=== PATIENT | female | born 2000 | race Caucasian/White ===

== ENCOUNTER 2021-07-02 10:04 | Outpatient (CLI) | payer OTHER, SELFPAY ==
--- NOTE | ~2021-07-02 | XR_ITS ---
EXAMINATION: XR thoracic spine 3V, XR lumbar spine 2-3V DATE: 07/02/2021 10:23 INDICATION: Back pain with bilateral leg radiculopathy TECHNIQUE: 1. One AP, lateral and lateral swimmer's views of the thoracic spine were obtained. 2. AP, lateral and coned-down lateral lumbosacral views of the lumbar spine were obtained. COMPARISON: None. FINDINGS: 3 component curvature of the thoracic and lumbar spine with 9 degrees levocurvature between T1 and T7 , 8 degrees dextrocurvature between T7 and L1 and a degree levocurvature between L1 and L5. Sagittal alignment of the thoracic and lumbar spine is normal. Thoracic and lumbar vertebral body heights and disc spaces are normal. Sacrum and bilateral sacral iliac joints are normal. Lungs are clear with no focal airspace opacities, pulmonary edema, pleural effusion or pneumothorax. Cardiomediastinal silhou ette is normal. Visualized bowel gas pattern is unremarkable. IMPRESSION: 1. Mild 3 compartment curvature of the thoracic and lumbar spine. Reviewed, dictated and finalized at location B. IMPRESSION: 1. Mild 3 compartment curvature of the thoracic and lumbar spine.
== END 2021-07-02 10:05 | disposition home or self-care (01) ==
LOC: ANHIMG 10:07
PROVIDERS: PCP Internal Medicine; Visit Provider Internal Medicine
DX: M54.50 Low back pain, unspecified (principal); M43.9 Deforming dorsopathy, unspecified
CPT/HCPCS: 72072; 72100